=== PATIENT | female | born 1970 | race Caucasian/White ===

== ENCOUNTER 2017-11-10 11:32 | Emergency (ER) | END 2017-11-10 13:40 | disposition home or self-care (01) ==

== ENCOUNTER 2017-11-12 21:03 | Emergency (ER) | END 2017-11-13 00:39 | disposition home or self-care (01) ==

== ENCOUNTER 2017-12-30 21:27 | Emergency (ER) | END 2017-12-31 04:55 | disposition home or self-care (01) ==